=== PATIENT | male | born 1945 | race Caucasian/White ===

== ENCOUNTER → 2016-11-20 | Outpatient (CLI) | payer OTHER ==
[2016-11-20 17:34] LABS: CREATININE, URINE 56.8 MG/DL (15-500)
[2016-11-20 18:02] LABS: 24 HOUR URINE TOTAL VOLUME 3700 ML
== END ==
LOC: LAB 11-18 12:34
PROVIDERS: ATTEND Family Medicine
DX: E11.65 Type 2 diabetes mellitus with hyperglycemia (principal)
CPT/HCPCS: 82043; 84156